=== PATIENT | female | born 1995 | race Caucasian/White ===

== ENCOUNTER 2020-05-05 14:24 | Day surgery (SDC) | payer OTHER ==
[2020-04-28 12:16] VITALS: BMI 27.8
[2020-05-05] MEDS ORDERED: PROPOFOL 20 ML ONE ×4 (14:33→15:36)
[2020-05-05] MEDS ORDERED: ONDANSETRON 4 MG/2 ML VIAL ONE ×2 (14:33→15:44)
[2020-05-05] MEDS ORDERED: DEXAMETHASONE SOD PHOSPHATE 4 MG/1 ML VIAL ONE ×2 (14:33→15:44)
[2020-05-05] MEDS ORDERED: MIDAZOLAM HCL 2 MG/2 ML SINGLE DOSE VIAL ONE (14:34)
[2020-05-05] MEDS ORDERED: ROPIVACAINE HCL 0.5% 30ML VIAL ONE (14:47)
[2020-05-05] MEDS ORDERED: LIDOCAINE HCL 2% JELLY (5 ML/TUBE) ONE (15:44)
[2020-05-05] MEDS ORDERED: LIDOCAINE HCL/PF 2% SDV 5ML VIAL ONE (15:44)
[2020-05-05] MEDS ORDERED: ceFAZolin SODIUM 1 GM VIAL ONE (15:44)
[2020-05-05] MEDS ORDERED: PROMETHAZINE HCL 25 MG/1 ML VIAL IVPUSH PRN (16:39)
[2020-05-05] MEDS ORDERED: oxyCODONE HCL 5 MG TABLET PO PRN ×2 (16:39)
[2020-05-05] MEDS ORDERED: ONDANSETRON 4 MG/2 ML VIAL IVPUSH PRN (16:39)
[2020-05-05 17:27] VITALS: TEMP 97.9
[2020-05-05 17:57] VITALS: BP 120/68; PULSE 63
--- NOTE | 2020-05-05 18:32 | OP ---
DATE OF OPERATION: 05/05/2020 PREOPERATIVE DIAGNOSIS: 1. Left wrist dorsal capsular syndrome. 2. Left wrist dorsal ganglion. POSTOPERATIVE DIAGNOSIS: 1. Left wrist dorsal capsular syndrome. 2. Left wrist dorsal ganglion. 3. Left wrist small triangular fibrocartilage complex tear. OPERATIVE PROCEDURE: 1. Left wrist Doppler arthroscopy with debridement of triangular fibrocartilage complex and dorsal capsule. 2. Excision of left ganglion cyst. SURGEON: Chip Lemon MD. MECHANIC GENERAL OPERATIONAL TEST: KELLEE Montiel. ANESTHESIA: General anesthesia. COMPLICATIONS: None. ESTIMATED BLOOD LOSS: Minimal. INDICATION FOR PROCEDURE: A 25-year-old female with the above findings, indicated for operative treatment. Risks, benefits, and alternatives were discussed with the her at length. Proper informed consent was obtained. DESCRIPTION OF PROCEDURE: After proper identification of the patient and correct operative site, patient was brought to the operating room and placed supine on the operating room table, all bony prominences well padded. General anesthesia was given. Left upper extremity was prepped and draped in the usual sterile fashion. Well padded tourniquet was placed with a sterile prep. Esmarch bandage to exsanguinate the left upper extremity. Tourniquet inflated to 250 mmHg. Then, 3-4 and 4-5 portals were made with skin incision only and blunt dissection around the joint capsule. Ten pounds of inline traction were used with wrist arthroscopy traction tower with all points of contact well padded. Radial carpal was observed and found to be free of articular defect except for small erosion on the dorsal aspect of the lunate. The scapholunate and lunotriquetral ligaments were intact, volar carpal ligaments were intact. A small dorsal tear of the TFCC superficial surface noted with hyperemia around it. This was debrided with a mechanical shaver. TFCC was found to be stable. Significant synovitis and a stalk of the ganglion cyst was noted grossly, and the stalk and synovitis were excised. The wounds were irrigated and repaired with 5-0 plain gut suture. Sterile dressings were applied. Patient brought to recovery in stable condition, tolerated procedure well. Robi Malcolm, the assistant food service director, was integral throughout the procedure. Procedure could not have been performed without a skilled operative assistant food service director. CHIP LEMON M.D. [id number]
== END 2020-05-05 18:06 | disposition home or self-care (01) ==
LOC: FASU 14:24
PROVIDERS: ATTEND Orthopaedic Surgery Hand Surgery
PROC: 0RBP4ZZ Excision of Left Wrist Joint, Percutaneous Endoscopic Approach (ICD-10-PCS; 2020-05-05)
PROC: 0RBP4ZZ Excision of Left Wrist Joint, Percutaneous Endoscopic Approach (ICD-10-PCS; principal; 2020-05-05 15:52)
DX: M24.832 Other specific joint derangements of left wrist, not elsewhere classified (principal); M67.432 Ganglion, left wrist; M24.132 Other articular cartilage disorders, left wrist
CPT/HCPCS: 84703; 94760